=== PATIENT | female | born 1980 | race Caucasian/White ===

== ENCOUNTER 2017-08-11 21:06 | Emergency (ER) | payer MEDICAID ==
--- NOTE | 2017-08-11 21:20 | Emergency Department Record ---
History of Present Illness - General Chief complaint: Vomiting Stated complaint: VOMITING/ ALCOHOL WITHDRAWAL Time Seen by Provider: 08/11/17 21:20 Source: Patient, Family Mode of Arrival: Ambulatory Limitations: No limitations - History of Present Illness Initial comments: 37 yo female presents with nausea, shakes, weakness. She is a lifelong alcoholic. She intermittently tries to slow down or quick. She does work 2 jobs and has a new job prospect in [place]. She tried to cut back and stopped 3 days ago. She has developed nausea, vomiting, sweats and shakes. No seizure. No history of withdrawal seizures. No history or serious commitment to stopping alcohol. She states beer is her choice beverage. No other drugs. Last drink was last night. She was putting small amount of beer in her pediatyte. No blood in the vomit. MD complaint: Nausea, Vomiting, Other (Shakes) -: Days(s) (3) Description of Vomiting: Watery Description of Diarrhea: Water Location: Other Radiation: None Severity: Moderate Quality: Other Consistency: Constant Worsens with: Other (Alcohol) - Related Data Previous Rx's Medication Instructions Recorded Lorazepam [Ativan] 1 mg PO Q8H #9 tablet 08/11/17 Ondansetron [Zofran Odt] 4 mg PO Q8H #20 tab.rapdis 08/11/17 Allergies Allergy/AdvReac Type Severity Reaction Status Date / Time No Known Drug Allergies Allergy Verified 08/11/17 21:23 Review of Systems Constitutional: Reports: Malaise, Weakness. Denies: Chills Eyes: Denies: Eye discharge, Eye pain, Photophobia, Vision change ENT: Denies: Congestion, Throat pain Respiratory: Denies: Cough, Dyspnea, Hemoptysis, Stridor, Wheezes Cardiovascular: Denies: Chest pain, Palpitations, Syncope Endocrine: Reports: Fatigue. Denies: Polydipsia, Polyuria Gastrointestinal: Reports: Nausea, Vomiting. Denies: Diarrhea Genitourinary: Denies: Dysuria, Urgency Musculoskeletal: Denies: Arthralgia, Back pain, Joint swelling, Myalgia, Neck pain Skin: Denies: Bruising, Change in color, Rash Neurological: Reports: Tremors, Weakness. Denies: Headache, Numbness Psychiatric: Reports: Anxiety Hematological/Lymphatic: Denies: Blood Clots, Easy bleeding, Easy bruising, Swollen glands Physical Exam - General General Appearance: Alert, Oriented x3, Cooperative, No acute distress, Other ( Cooperative, calm, conversational) Limitations: No limitations - Head Head exam: Atraumatic, Normal inspection - Eye Eye exam: Normal appearance, PERRL. negative: Conjunctival injection, Periorbital swelling, Scleral icterus - ENT ENT exam: Normal exam, Mucous membranes moist Ear exam: Normal external inspection Nasal Exam: Normal inspection Mouth exam: Normal external inspection Teeth exam: Normal inspection Throat exam: Normal inspection - Neck Neck exam: Normal inspection, Full ROM. negative: Tenderness - Respiratory Respiratory exam: Normal lung sounds bilaterally. negative: Respiratory distress, Wheezes - Cardiovascular Cardiovascular Exam: Regular rate, Normal rhythm, Normal heart sounds - GI/Abdominal GI/Abdominal exam: Soft. negative: Tenderness - Rectal Rectal exam: Deferred - exam: Deferred - Extremities Extremities exam: Normal inspection, Full ROM, Normal capillary refill. negative: Tenderness - Back Back exam: Reports: Normal inspection, Full ROM. Denies: CVA tenderness (R), CVA tenderness (L), Muscle spasm, Rash noted, Tenderness - Neurological Neurological exam: Alert, Normal gait, Oriented X3, Reflexes normal - Psychiatric Psychiatric exam: Normal affect, Normal mood - Skin Skin exam: Dry, Intact, Normal color, Warm Course - Reevaluation(s) Reevaluation #1: Vitals signs reviewed. 08/11/17 21:29 08/11/17 22:18 The magnesium is low at 1.3 The transaminases are elevated with AST> ALT as expected with alcohol. The CBC is normal 08/11/17 22:43 The patient reports improved nausea and shakes I reviewed the labs with her. I informed her of her elevated LFT's due to alcohol and the need to cease the current abuse. She is not considering a treatment program as this time. She is most focused on getting to [place] to her new job. 08/11/17 23:58 The patient is doing well at [place] I recommended she follow up liver function tests with a clinic in [place]. I wrote a limited number of zofran and ativan for her for the next 72 hours We discussed follow up and reasons for immediate evaluation Medical Decision Making - Lab Data Result diagrams: 08/11/17 21:40 08/11/17 21:40 Disposition Disposition: Discharge Clinical Impression: Nausea and vomiting, Alcohol withdrawal Disposition: Home, Self-Care Condition: (1) Good Instructions: Alcohol Withdrawal (ED) Additional Instructions: Stay hydrated Avoid alcohol Seek out support groups in [place] to help with your alcoholism Take the Ativan every 8 hours if needed No driving within 12 hours of taking the Ativan Prescriptions: Lorazepam [Ativan] 1 mg PO Q8H #9 tablet Ondansetron [Zofran Odt] 4 mg PO Q8H #20 tab.rapdis Forms: Patient Portal Access Time of Disposition: 23:41 Quality - Quality Measures Quality Measures: N/A - Blood Pressure Screening Does Patient Have Any of the Following: No Blood Pressure Classification: Normal BP Reading Systolic Measurement: 117 Diastolic Measurement: 69 Screening for High Blood Pressure: < Normal BP, F/U Not Required > [G8783]
[2017-08-11] MEDS ORDERED: 0.9 % SODIUM CHLORIDE 1000ML 1,000 ML IV ONE (21:38)
[2017-08-11] MEDS ORDERED: ONDANSETRON HCL IV 4 MG/2 ML VIAL IVP ONE ×2 (21:38→21:40)
[2017-08-11] MEDS ORDERED: 0.9 % SODIUM CHLORIDE 1,000 ML BAG IV ONE (21:40)
[2017-08-11] MEDS ORDERED: LORAZEPAM 2 MG/ML VIAL IV ONE (21:40)
[2017-08-11 21:48] LABS: HEMATOCRIT 42.6 % (35.0-47.0); HEMOGLOBIN 14.9 gm/dl (11.6-16.0); MEAN CELL VOLUME 99.1 fl (81-97); MEAN CORPUSCULAR HEMOGLOBIN 34.7 pg (27-33); MEAN PLATELET VOLUME 9.5 fl (7.4-10.4); PLATELET COUNT 278 K/uL (130-400); RED CELL DISTRIBUTION WIDTH 11.8 % (11.5-14.5)
[2017-08-11 22:00] LABS: BLOOD UREA NITROGEN 13 mg/dL (6-20)
[2017-08-11 22:01] LABS: CREATININE 0.8 mg/dL (0.5-0.9); EST GLOMERULAR FILTRATION RATE > 60 mL/min; TOTAL PROTEIN 7.2 g/dL (6.6-8.7)
[2017-08-11 22:03] LABS: GLUCOSE,RANDOM 156 mg/dL (74-109); PLATELET ESTIMATE NORMAL (NORMAL)
[2017-08-11 22:06] LABS: ALB/GLOB RATIO 1.3 (1.1-1.8); ALBUMIN 4.1 g/dL (4.0-5.0); ALKALINE PHOSPHATASE 85 U/L (35-104); ALT/SGPT 221 U/L (<33); AST/SGOT 435 U/L (10.0-35.0)
[2017-08-11] MEDS ORDERED: MAGNESIUM SULFATE 16 MEQ in 0.9 % SODIUM CHLORIDE 100ML 100 ML IV ONE (22:19)
[2017-08-11] MEDS ORDERED: KETOROLAC 30 MG/ML VIAL IVP ONE (22:33)
[2017-08-11] MEDS ORDERED: LORAZEPAM 0.5 MG TABLET PO ONE (23:38)
[2017-08-11] MEDS ORDERED: ONDANSETRON 4 MG ODT TABLET SL ONE (23:38)
== END 2017-08-12 00:26 | disposition home or self-care (01) ==
LOC: ER 21:06
DX: F10.239 Alcohol dependence with withdrawal, unspecified (principal); R11.2 Nausea with vomiting, unspecified; R94.5 Abnormal results of liver function studies
CPT/HCPCS: 99284 ×2; 96365; 96375; 96361; 83735; 80053; 85027; J1885; J2405; J2060; J7030